=== PATIENT | female | born 2000 | race Hispanic/Latino ===

== ENCOUNTER 2021-03-03 12:13 | Observation (INO) | payer OTHER ==
[~2021-03-03] VITALS: Ht 154.9 cm; Wt 76.2 kg
[2021-03-03 13:18] LABS: APPEARANCE,URINE Clear (CLEAR); BILIRUBIN,URINE Negative (NEGATIVE); COLOR,URINE Yellow (YELLOW); GLUCOSE, URINE (UA) Negative (NEGATIVE); KETONES,URINE Trace mg/dL (NEGATIVE); LEUKOCYTE ESTERASE ,URINE Large (NEGATIVE); NITRATE,URINE Negative (NEGATIVE); OCCULT BLOOD,URINE Negative (NEGATIVE); PROTEIN,URINE Trace mg/dL (NEGATIVE)
[2021-03-03 13:24] LABS: AMPHET/METH SCREEN,URINE NEGATIVE (NEGATIVE); BARBITURATE SCREEN, URINE NEGATIVE (NEGATIVE); BENZODIAZEPINES SCREEN,URINE NEGATIVE (NEGATIVE); CANNABINOID SCREEN,URINE NEGATIVE (NEGATIVE); COCAINE SCREEN,URINE NEGATIVE (NEGATIVE); OPIATE SCREEN,URINE NEGATIVE (NEGATIVE); PHENCYCLIDINE SCREEN,URINE NEGATIVE (NEGATIVE)
[2021-03-03 13:35] LABS: BACTERIA,URINE Rare /HPF (None Seen); MUCUS,URINE Moderate LPF (None Seen); SQUAMOUS EPITHELIAL CELL,UR Few /HPF (0-2)
[2021-03-03] MEDS ORDERED: LACTATED RINGERS 1000ML IV PRN (14:00)
[2021-03-03 14:17] VITALS: BP 126/78
== END 2021-03-03 16:05 | disposition home or self-care (01) ==
LOC: EDH 12:13 → LDH 12:14
PROVIDERS: ADMIT Obstetrics & Gynecology; ATTEND Obstetrics & Gynecology
DX: O62.9 Abnormality of forces of labor, unspecified (principal); Z3A.38 38 weeks gestation of pregnancy
CPT/HCPCS: 59025; 80305; 81001; 87088; 96360; 96361; G0378 ×4; J7120

== ENCOUNTER 2021-03-17 04:26 | Inpatient (IN) | payer MEDICAID, OTHER ==
[~2021-03-17] VITALS: Ht 157.5 cm; Wt 79.4 kg
[2021-03-17 05:17] LABS: APPEARANCE,URINE Cloudy (CLEAR); BILIRUBIN,URINE Negative (NEGATIVE); COLOR,URINE Yellow (YELLOW); GLUCOSE, URINE (UA) Negative (NEGATIVE); KETONES,URINE Negative (NEGATIVE); LEUKOCYTE ESTERASE ,URINE Large (NEGATIVE); NITRATE,URINE Negative (NEGATIVE); OCCULT BLOOD,URINE Moderate (NEGATIVE); PH,URINE 6.5 (5.0-8.0); PROTEIN,URINE POS 1+ mg/dL (NEGATIVE)
[2021-03-17 05:29] LABS: BACTERIA,URINE Few /HPF (None Seen); SQUAMOUS EPITHELIAL CELL,UR Moderate /HPF (0-2); WBC,URINE 26-50 /HPF (0-1)
[2021-03-17 06:13] LABS: HEMATOCRIT 25.4 % (36-48); MEAN CORPUSCULAR HEMOGLOBIN 21.9 pg (27.0-33.0); MEAN CORPUSCULAR HGB CONC 29.1 g/dL (32.0-36.0); MEAN CORPUSCULAR VOLUME 75.1 fL (80-100); NUCLEATED RED BLOOD CELLS 0.7 % (0.0-0.19); PLATELET COUNT (AUTO) 284 K/uL (130-400); RED BLOOD CELL COUNT(AUTO) 3.38 MIL/uL (4.00-5.50); RED CELL DISTRIBUTION WIDTH 17.9 % (11.0-15.5); WHITE BLOOD COUNT (AUTO) 8.1 K/uL (4.8-10.8)
[2021-03-17] MEDS ORDERED: AMPICILLIN 2GM+NS 100ML 100 ML IV ONE (06:23)
[2021-03-17] MEDS ORDERED: OXYTOCIN-LR 20 UNITS/1000 ML 1,000 ML IV ONE (06:23)
[2021-03-17] MEDS ORDERED: OXYTOCIN-LR 20 UNITS/1000 ML 1,000 ML IV SCH (06:30)
[2021-03-17] MEDS ORDERED: AMPICILLIN 2GM+NS 100ML 100 ML IV SCH (06:35)
[2021-03-17] MEDS ORDERED: LACTATED RINGERS 1000ML 1,000 ML IV PRN (06:45)
[2021-03-17 07:14] VITALS: BP 112/72
[2021-03-17 09:37] LABS: RAPID PLASMA REAGIN NONREACTIVE (NONREACTIVE)
[2021-03-17 10:25] LABS: AMPHET/METH SCREEN,URINE NEGATIVE (NEGATIVE); BARBITURATE SCREEN, URINE NEGATIVE (NEGATIVE); BENZODIAZEPINES SCREEN,URINE NEGATIVE (NEGATIVE); CANNABINOID SCREEN,URINE NEGATIVE (NEGATIVE); COCAINE SCREEN,URINE NEGATIVE (NEGATIVE); OPIATE SCREEN,URINE NEGATIVE (NEGATIVE); PHENCYCLIDINE SCREEN,URINE NEGATIVE (NEGATIVE)
[2021-03-17] MEDS ORDERED: BUTORPHANOL TARTRATE 2 MG/ML IVP SCH (10:30)
[2021-03-17] MEDS ORDERED: AMPICILLIN 1GM+NS 50ML 50 ML IV SCH (10:35)
[2021-03-17] MEDS ORDERED: CEFAZOLIN SODIUM 1 GM VIAL ONE (12:21)
[2021-03-17] MEDS ORDERED: CEFAZOLIN SODIUM 1 GM VIAL IVP PRN (12:30)
[2021-03-17] MEDS ORDERED: MORPHINE PF 100MG/10ML AMP IV ONE (12:41)
[2021-03-17] MEDS ORDERED: CEFAZOLIN SODIUM 1 GM VIAL IVP ONE (12:47)
[2021-03-17] MEDS ORDERED: ONDANSETRON 4MG INJ ONE (12:53)
[2021-03-17] MEDS ORDERED: EPHEDRINE SULFATE 50 MG/ML AMPULE IVP PRN (14:15)
[2021-03-17] MEDS ORDERED: MEPERIDINE-PF 75 MG/ML SYG IM PRN (14:15)
[2021-03-17] MEDS ORDERED: 0.9%NACL 10ML VIAL IVP PRN (14:15)
[2021-03-17] MEDS ORDERED: DiphenhydrAMINE HCL 50 MG/ML VIAL IVP PRN (14:15)
[2021-03-17] MEDS ORDERED: ONDANSETRON 4MG INJ IVP PRN (14:15)
[2021-03-17] MEDS ORDERED: OXYTOCIN-LR 20 UNITS/1000 ML 1,000 ML IV PRN (14:15)
[2021-03-17] MEDS ORDERED: PROMETHAZINE HCL 25 MG/ML 1ML AMPULE IM PRN (14:15)
[2021-03-17] MEDS ORDERED: NALOXONE HCL 0.4 MG/1 ML ML IVP PRN (14:15)
[2021-03-17] MEDS ORDERED: DEXTROSE 5 %-0.45 % NACL 1,000 ML IV PRN (14:15)
[2021-03-17 15:53] VITALS: BP 123/72
[2021-03-17] MEDS ORDERED: PREN-61 PO (17:11)
[2021-03-17] MEDS ORDERED: DIPH,PERTUSS(ACELL),TET VAC/PF 0.5 ML VIAL IM ONE (18:45)
[2021-03-17] MEDS ORDERED: MEASLES/MUMPS/RUBELLA VACCINE, LIVE 0.5 ML/VIAL SQ ONE (18:45)
[2021-03-17 20:20] VITALS: BP 129/75
[2021-03-17 23:55] VITALS: BP 120/72
[2021-03-18 04:20] VITALS: BP 122/67
[2021-03-18 06:49] LABS: HEMATOCRIT 21.7 % (36-48); MEAN CORPUSCULAR HEMOGLOBIN 22.1 pg (27.0-33.0); MEAN CORPUSCULAR VOLUME 76.1 fL (80-100); NUCLEATED RED BLOOD CELLS 0.2 % (0.0-0.19); RED BLOOD CELL COUNT(AUTO) 2.85 MIL/uL (4.00-5.50); RED CELL DISTRIBUTION WIDTH 17.9 % (11.0-15.5); WHITE BLOOD COUNT (AUTO) 14.6 K/uL (4.8-10.8)
[2021-03-18 07:14] VITALS: BP 112/75
[2021-03-18 07:15] LABS: HEPATITIS Bs ANTIGEN SCREEN P Negative (Negative)
[2021-03-18] MEDS ORDERED: LANOLIN 30GM OINTMENT TP PRN (08:00)
[2021-03-18] MEDS ORDERED: BISACODYL 10 MG SUPP.RECT RC PRN (08:00)
[2021-03-18] MEDS ORDERED: ACETAMINOPHEN 500 MG TABLET PO PRN (08:00)
[2021-03-18] MEDS ORDERED: HYDROCODONE/ACETAMINOPHEN 5/325 MG TAB PO PRN (08:00)
[2021-03-18] MEDS ORDERED: DIPHENHYDRAMINE HCL 25 MG CAPSULE PO PRN (08:00)
[2021-03-18] MEDS: DOCUSATE SODIUM 100 MG CAP PO SCH ×2 (08:34→20:21)
[2021-03-18] MEDS: SIMETHICONE 80 MG TAB.CHEW PO PRN ×4 (08:34→20:21)
[2021-03-18] MEDS: IBUPROFEN 600 MG TABLET PO PRN ×3 (08:35→20:22)
[2021-03-18] MEDS: ACETAMINOPHEN WITH CODEINE 1 TAB TAB PO PRN ×2 (08:36→14:24)
[2021-03-18 11:00] VITALS: BP 105/56
[2021-03-18] MEDS ORDERED: MEASLES/MUMPS/RUBELLA VACCINE, LIVE 0.5 ML/VIAL SQ ONE (14:40)
[2021-03-18] MEDS ORDERED: DIPH,PERTUSS(ACELL),TET VAC/PF 0.5 ML VIAL IM ONE (14:40)
[2021-03-18 16:22] VITALS: BP 97/49
[2021-03-18 18:15] VITALS: BP 116/66
[2021-03-18 23:15] VITALS: BP 124/74
[2021-03-19 03:40] VITALS: BP 101/64
[2021-03-19 07:14] VITALS: BP 112/72
[2021-03-19] MEDS: DOCUSATE SODIUM 100 MG CAP PO SCH (09:11)
[2021-03-19] MEDS: SIMETHICONE 80 MG TAB.CHEW PO PRN (09:11)
[2021-03-19] MEDS: IBUPROFEN 600 MG TABLET PO PRN (09:12)
[2021-03-19 11:39] VITALS: BP 118/59
== END 2021-03-19 14:30 | disposition home or self-care (01) | DRG 787 ==
LOC: EDH 04:34 → OBSVTOIN 04:41 → LDH 04:41 → WSH 15:28
PROVIDERS: ADMIT Obstetrics & Gynecology; ATTEND Obstetrics & Gynecology
PROC: 3E0234Z Introduction of Serum, Toxoid and Vaccine into Muscle, Percutaneous Approach (ICD-10-PCS; 2021-03-17)
PROC: 3E0134Z Introduction of Serum, Toxoid and Vaccine into Subcutaneous Tissue, Percutaneous Approach (ICD-10-PCS; 2021-03-17)
PROC: 10D00Z1 Extraction of Products of Conception, Low, Open Approach (ICD-10-PCS; principal; 2021-03-17 12:30)
DX: O76 Abnormality in fetal heart rate and rhythm complicating labor and delivery (principal); R71.0 Precipitous drop in hematocrit; O69.81X0 Labor and delivery complicated by cord around neck, without compression, not applicable or unspecified; Z3A.40 40 weeks gestation of pregnancy; Z37.0 Single live birth; Z23 Encounter for immunization
CPT/HCPCS: 36415; 59510; 76805; 80305; 81001; 85027; 86592; 86701; 86850; 86900; 86901; 87088; 87340; 87390; 90707; 90715; A4344; G0378; J0290; J0595; J0690; J1200; J2274; J2405; J2590; J7120